=== PATIENT | male | born 1950 | race Two or more races ===

== ENCOUNTER → 2019-04-06 | Outpatient (CLI) | payer MEDICARE, MEDICAID ==
[~2019-04-06] MED LIST: METO25TA6 PO
== END | disposition home or self-care (01) ==
LOC: MSC 11:45
PROVIDERS: ATTEND Anesthesiology
DX: M47.27 Other spondylosis with radiculopathy, lumbosacral region (principal); M51.26 Other intervertebral disc displacement, lumbar region; M62.830 Muscle spasm of back; M40.299 Other kyphosis, site unspecified; M79.2 Neuralgia and neuritis, unspecified; M79.605 Pain in left leg; M25.562 Pain in left knee; Z89.511 Acquired absence of right leg below knee; I73.9 Peripheral vascular disease, unspecified; Z79.899 Other long term (current) drug therapy

== ENCOUNTER → 2019-12-21 | Outpatient (CLI) | payer MEDICARE, MEDICAID | END | disposition home or self-care (01) | LOC: MSC 11:30 | PROVIDERS: ATTEND Anesthesiology | DX: M51.26 Other intervertebral disc displacement, lumbar region (principal); M47.27 Other spondylosis with radiculopathy, lumbosacral region; M40.299 Other kyphosis, site unspecified; M62.830 Muscle spasm of back; M79.2 Neuralgia and neuritis, unspecified; M79.605 Pain in left leg; M25.562 Pain in left knee; I73.9 Peripheral vascular disease, unspecified; Z98.62 Peripheral vascular angioplasty status; Z89.611 Acquired absence of right leg above knee; Z79.01 Long term (current) use of anticoagulants; Z79.899 Other long term (current) drug therapy ==

== ENCOUNTER 2021-09-27 13:38 | Emergency (ER) | payer MEDICARE, OTHER ==
[~2021-09-27] VITALS: Ht 167.6 cm; Wt 78.5 kg
[2021-09-27 13:56] VITALS: BP 142/74
[2021-09-27] MEDS ORDERED: ACETAMINOPHEN 325 MG TABLET PO ONE (14:30)
[2021-09-27] MEDS ORDERED: ACETAMINOPHEN 325 MG TABLET ONE (14:30)
--- NOTE | 2021-09-27 16:52 | NUR ---
Patient discharged to home in stable condition. Written and verbal after care instructions given. Patient verbalizes understanding of instruction.
== END 2021-09-27 16:52 | disposition home or self-care (01) ==
LOC: ER 13:53
DX: U07.1 COVID-19 (principal); I10 Essential (primary) hypertension; E78.5 Hyperlipidemia, unspecified; Z89.611 Acquired absence of right leg above knee; Z79.899 Other long term (current) drug therapy
CPT/HCPCS: C9803